=== PATIENT | male | born 1980 | race Caucasian/White ===

== ENCOUNTER → 2017-01-23 | Day surgery (SDC) | payer BC ==
[~2017-01-23] MED LIST: IBUPROFEN PO; LORTAB 5/500 TA1 TA1 PO; NO MEDICATIONS; PHENERGAN25 M1 PO
--- NOTE | ~2017-01-23 | OR ---
Unit #: [id number] #: [id number] Patient: YADIRA HERNANDEZ [id number] [address] [address] [id number] MR#: [id number] NAME: YADIRA HERNANDEZ ROOM: Date of Procedure: 01/23/2017 Admission Date: 01/23/2017 Surgeon: Joselo Blancas Jr., M.D. : 1980 Attending Physician: Joselo Blancas Jr., M.D. Primary Care Physician: Isra Gupta M.D. OPERATIVE REPORT INDICATIONS FOR PROCEDURE The patient is a 36-year-old white male, who recently was referred to the office complaining of enlarging mass that he has noticed for at least 6 months of the left occipital scalp. He is brought in at this time for excision of this. He understands the procedure including risks, including that of infection, and recurrence and chronic pain, and nerve injury, and consents. PREOPERATIVE DIAGNOSIS Enlarging mass, left occipital area. POSTOPERATIVE DIAGNOSES Enlarging mass, left occipital area noting a large approximately 6 cm lipomatous mass of the area. ANESTHESIA 1% Xylocaine with epinephrine locally and IV Versed and fentanyl conscious sedation. He was given a total of 8 mg of Versed and 100 mcg of fentanyl during the entire procedure. PROCEDURE PERFORMED Excision of large mass of the left occipital area. DESCRIPTION OF PROCEDURE The patient was positioned in right lateral decubitus position. After being prepped and draped in routine fashion, he was given IV Versed and fentanyl slowly during the entire case with a total of 8 mg of Versed and 100 mcg of fentanyl being given in the entirety. He was locally anesthetized with 1% Xylocaine with epinephrine. An elliptical incision was made around the mass with it generally being excised from the surrounding tissue with a #10 blade scalpel down to the fascia of the muscle. After the mass was completely removed, it was sent to Pathology. Hemostasis was achieved with Bovie cautery and the deeper tissue approximated with interrupted 3-0 Vicryl sutures. Skin edges were approximated with interrupted 2-0 nylon sutures. Ointment was applied externally. Estimated blood loss was less than 30 mL. The patient received less than 500 mL of crystalloid solution during the procedure. Sponges and instruments counts were correct x3. No drains were used. No complications. The patient was taken to the discharge area with stable vital signs for discharge in satisfactory condition. Unit #: [id number] #: [id number] Patient: YADIRA HERNANDEZ Dictated by... Joselo Blancas Jr., MKonstantin [place]/bradley TD: 01/23/2017 10:54 JOB #: [id number] OPERATIVE REPORT Page 1 of 1 X Joselo Blancas MD X PROCEDURE OPERATIVE NOTE
== END | disposition home or self-care (01) ==
LOC: CSUR 07:21
DX: E65 Localized adiposity (principal); F17.210 Nicotine dependence, cigarettes, uncomplicated; Z98.818 Other dental procedure status
CPT/HCPCS: 88304; J2250; J3010